=== PATIENT | male | born 1935 | race Caucasian/White ===

== ENCOUNTER 2023-04-11 19:05 | Inpatient (IN) | payer MEDICARE ==
[2023-04-11 20:51] LABS: Bilirubin Neg (Negative); Blood, Urine Negative (Negative); Clarity Clear (Clear); Glucose, Urine (Dipstick) Normal (Negative); Ketone, Urine Negative (Negative); Leukocyte Negative (Negative); Nitrite Negative (Negative); Protein, Urine (Dipstick) 15 mg/dl (Neg-Trace)
[2023-04-11 21:11] LABS: Bacteria/HPF None Seen HPF (None Seen); CAUTI Indications for Culture Pelvic or flank pain; RBC/HPF None Seen HPF (0-3); Squamous Epithelial None Seen HPF (0-3); Urine Culture Reflex No No; WBC/HPF 0-3 HPF (0-3)
[2023-04-11 22:20] LABS: ALT (SGPT) 11 U/L (8-55); AST (SGOT) 15 U/L (5-34); Albumin 3.4 g/dL (3.4-4.8); Alkaline Phosphatase 87 U/L (40-110); Anion Gap 10 mmol/L (10-20); BUN (Urea Nitrogen) 28 mg/dL (8.4-25.7); Bilirubin, Total 0.6 mg/dL (0.2-1.2); Calc. Creatinine Clearance 0 mL/min (70-130); Calcium 8.7 mg/dL (7.8-10.44); Carbon Dioxide 24 mmol/L (23-31); Chloride 110 mmol/L (98-107); Estimated GFR 66; Globulin 2.8 g/dL (2.4-3.5); Glucose 96 mg/dL (83-110); Magnesium 2.1 mg/dL (1.6-2.6); Potassium 3.7 mmol/L (3.5-5.1); Protein, Total 6.2 g/dL (5.8-8.1); Sodium 140 mmol/L (136-145)
[2023-04-11 22:26] LABS: #Eosinphils 0.2 10x3/uL (0.0-0.5); #Monocytes 0.6 10x3/uL (0.0-1.1); #Neutrophils 3.4 10x3/uL (1.5-8.4); %Basophils 0.5 % (0.0-2.0); %Eosinophils 3.5 % (0.0-6.0); %Lymphocytes 24.4 % (18.0-47.0); %Neutrophils 60.2 % (40.0-75.0); Hematocrit 37.2 % (38.8-50.0); Hemoglobin 12.1 g/dL (13.5-17.5); Mean Corpuscular HGB CONC 32.5 g/dL (32.0-36.0); Mean Corpuscular Hemoglobin 26.7 pg (27.0-33.0); Mean Corpuscular Volume 81.9 fl (81.2-95.1); Mean Platelet Volume 13.4 fl (7.4-10.4); Platelet Count 175 10x3/uL (150-450); RBC Distribution Width 16.4 % (11.5-14.5); Red Blood Cell (RBC) Count 4.54 10x6/uL (4.32-5.72); White Blood Cell (WBC) Count 5.7 10x3/uL (3.5-10.5)
[2023-04-11 22:27] LABS: Troponin I 0.044 ng/mL (< 0.028)
[2023-04-11] MEDS ORDERED: Ondansetron PF 4 MG/2 ML Vial IVP PRN (23:53)
[2023-04-11] MEDS ORDERED: Guaifenesin DM 100-10/5 ML UDCUP PO PRN (23:53)
[2023-04-11] MEDS ORDERED: Acetaminophen 325 MG TAB PO PRN (23:53)
[2023-04-11] MEDS ORDERED: Senokot S 8.6-50 MG TAB PO PRN (23:53)
[2023-04-11] MEDS ORDERED: Calcium Carbonate 500 MG ChewTAB PO PRN (23:53)
[2023-04-12] MEDS ORDERED: Furosemide 40 MG/4 ML VIAL SLOW IVP SCH (01:00)
[2023-04-12 01:27] VITALS: BMI 30.7
[2023-04-12] MEDS: HYDROcodone/Acetaminophen 5/325 mg Tablet PO PRN ×2 (03:19→17:13)
[2023-04-12] MEDS: Furosemide 40 MG/4 ML VIAL SLOW IVP SCH ×2 (05:45→17:13)
[2023-04-12 06:32] LABS: Anion Gap 13 mmol/L (10-20); BUN (Urea Nitrogen) 26 mg/dL (8.4-25.7); Calc. Creatinine Clearance 70 mL/min (70-130); Calcium 8.3 mg/dL (7.8-10.44); Carbon Dioxide 21 mmol/L (23-31); Chloride 111 mmol/L (98-107); Estimated GFR 74; Glucose 90 mg/dL (83-110); Potassium 3.4 mmol/L (3.5-5.1); Sodium 142 mmol/L (136-145)
[2023-04-12 08:52] LABS: Troponin I 0.047 ng/mL (< 0.028)
[2023-04-12] MEDS: Clopidogrel Bisulfate 75 MG TAB PO SCH (10:02)
[2023-04-12] MEDS: Amantadine HCl 100 mg Capsule PO SCH ×2 (10:02→21:33)
[2023-04-12] MEDS: Rivaroxaban 10 MG TAB PO SCH (10:02)
[2023-04-12] MEDS: Famotidine 20 MG TAB PO SCH ×2 (10:03→21:33)
[2023-04-12] MEDS: Sotalol HCl 80 MG TAB PO SCH ×2 (10:03→21:34)
[2023-04-12] MEDS: rOPINIRole HCl 2 MG TAB PO SCH (10:05)
[2023-04-12] MEDS ORDERED: Potassium Chloride 20 MEQ TAB PO SCH (11:00)
[2023-04-12 14:43] LABS: SARS-CoV-2 NAA Rapid Test Not Detected (NotDetected)
[2023-04-12] MEDS: Atorvastatin Calcium 40 MG TAB PO SCH (21:33)
[2023-04-12] MEDS: Doxazosin 2 MG TAB PO SCH (21:33)
[2023-04-12] MEDS: Donepezil HCl 5 MG TAB PO SCH (21:33)
[2023-04-13 04:02] LABS: #Eosinphils 0.2 10x3/uL (0.0-0.5); #Monocytes 0.7 10x3/uL (0.0-1.1); #Neutrophils 3.9 10x3/uL (1.5-8.4); %Basophils 0.5 % (0.0-2.0); %Eosinophils 3.5 % (0.0-6.0); %Monocytes 10.3 % (0.0-10.0); %Neutrophils 61.5 % (40.0-75.0); Hemoglobin 12.5 g/dL (13.5-17.5); Mean Corpuscular HGB CONC 32.9 g/dL (32.0-36.0); Mean Corpuscular Hemoglobin 26.8 pg (27.0-33.0); Mean Corpuscular Volume 81.4 fl (81.2-95.1); Mean Platelet Volume 12.8 fl (7.4-10.4); Platelet Count 164 10x3/uL (150-450); RBC Distribution Width 16.3 % (11.5-14.5); Red Blood Cell (RBC) Count 4.67 10x6/uL (4.32-5.72); White Blood Cell (WBC) Count 6.3 10x3/uL (3.5-10.5)
[2023-04-13 04:29] LABS: Anion Gap 12 mmol/L (10-20); BUN (Urea Nitrogen) 26 mg/dL (8.4-25.7); Calc. Creatinine Clearance 66 mL/min (70-130); Calcium 8.6 mg/dL (7.8-10.44); Carbon Dioxide 26 mmol/L (23-31); Cardiac Risk 3.3 (Less than 4.5); Chloride 106 mmol/L (98-107); Cholesterol 149 mg/dl (< 200 Desired); Estimated GFR 69; Glucose 84 mg/dL (83-110); HDL Cholesterol 45 mg/dL (>60 Neg Risk); LDL Cholesterol, Calculated 93 mg/dL; Magnesium 1.9 mg/dL (1.6-2.6); Potassium 3.3 mmol/L (3.5-5.1); Sodium 141 mmol/L (136-145); Triglycerides 55 mg/dL (Less than 150)
[2023-04-13 04:43] LABS: Troponin I 0.041 ng/mL (< 0.028)
[2023-04-13] MEDS: Furosemide 40 MG/4 ML VIAL SLOW IVP SCH (05:47)
[2023-04-13] MEDS: Rivaroxaban 10 MG TAB PO SCH (08:58)
[2023-04-13] MEDS: Famotidine 20 MG TAB PO SCH ×2 (08:58→21:00)
[2023-04-13] MEDS: Amantadine HCl 100 mg Capsule PO SCH ×2 (08:59→21:00)
[2023-04-13] MEDS: Sotalol HCl 80 MG TAB PO SCH (08:59)
[2023-04-13] MEDS: Clopidogrel Bisulfate 75 MG TAB PO SCH (09:00)
[2023-04-13] MEDS: HYDROcodone/Acetaminophen 5/325 mg Tablet PO PRN ×2 (09:01→17:33)
[2023-04-13] MEDS: rOPINIRole HCl 2 MG TAB PO SCH (09:01)
[2023-04-13] MEDS ORDERED: Potassium Chloride 20 MEQ TAB PO SCH (10:00)
[2023-04-13] MEDS ORDERED: Spironolactone 25 MG TAB PO SCH (10:00)
[2023-04-13] MEDS ORDERED: Magnesium 2 GM/50 ML(in water) 2 GM in Premix Bag 1 BAG IVPB SCH (10:30)
[2023-04-13 13:18] LABS: Hemoglobin A1c 5.4 % (4.0-6.0)
[2023-04-13] MEDS ORDERED: Digoxin 0.5 MG/2 ML AMP SLOW IVP SCH (15:00)
[2023-04-13] MEDS: Furosemide 20 MG/2 ML VIAL SLOW IVP SCH (15:04)
[2023-04-13] MEDS: Doxazosin 2 MG TAB PO SCH (21:00)
[2023-04-13] MEDS: Atorvastatin Calcium 40 MG TAB PO SCH (21:00)
[2023-04-13] MEDS: Metoprolol Tartrate 25 MG TAB PO SCH (21:00)
[2023-04-13] MEDS: Donepezil HCl 5 MG TAB PO SCH (21:00)
[2023-04-14 03:45] LABS: Anion Gap 10 mmol/L (10-20); BUN (Urea Nitrogen) 23 mg/dL (8.4-25.7); Calc. Creatinine Clearance 67 mL/min (70-130); Calcium 8.6 mg/dL (7.8-10.44); Carbon Dioxide 28 mmol/L (23-31); Chloride 104 mmol/L (98-107); Estimated GFR 77; Glucose 91 mg/dL (83-110); Magnesium 2.1 mg/dL (1.6-2.6); Potassium 3.4 mmol/L (3.5-5.1); Sodium 139 mmol/L (136-145)
[2023-04-14] MEDS: Furosemide 20 MG/2 ML VIAL SLOW IVP SCH ×2 (06:18→14:30)
[2023-04-14] MEDS: Metoprolol Tartrate 25 MG TAB PO SCH ×2 (10:57→21:22)
[2023-04-14] MEDS: Rivaroxaban 10 MG TAB PO SCH (10:58)
[2023-04-14] MEDS: Famotidine 20 MG TAB PO SCH ×2 (10:58→10:59)
[2023-04-14] MEDS: Amantadine HCl 100 mg Capsule PO SCH ×2 (11:00→21:21)
[2023-04-14] MEDS ORDERED: Potassium Chloride 20 MEQ TAB PO SCH (11:00)
[2023-04-14] MEDS: rOPINIRole HCl 2 MG TAB PO SCH (11:03)
[2023-04-14] MEDS: Digoxin 0.125 MG TAB PO SCH (11:19)
[2023-04-14] MEDS: Spironolactone 25 MG TAB PO SCH (11:19)
[2023-04-14] MEDS: Clopidogrel Bisulfate 75 MG TAB PO SCH (11:20)
[2023-04-14] MEDS: Atorvastatin Calcium 40 MG TAB PO SCH (21:21)
[2023-04-14] MEDS: Doxazosin 2 MG TAB PO SCH (21:22)
[2023-04-14] MEDS: Donepezil HCl 5 MG TAB PO SCH (21:22)
[2023-04-15] MEDS: Furosemide 20 MG/2 ML VIAL SLOW IVP SCH (05:49)
[2023-04-15] MEDS ORDERED: Potassium Chloride 20 MEQ TAB PO SCH ×2 (08:30→17:00)
[2023-04-15] MEDS: Metoprolol Tartrate 25 MG TAB PO SCH (09:07)
[2023-04-15] MEDS: Spironolactone 25 MG TAB PO SCH (09:07)
[2023-04-15] MEDS: Famotidine 20 MG TAB PO SCH (09:08)
[2023-04-15] MEDS: Rivaroxaban 10 MG TAB PO SCH (09:08)
[2023-04-15] MEDS: Amantadine HCl 100 mg Capsule PO SCH (09:08)
[2023-04-15] MEDS: Digoxin 0.125 MG TAB PO SCH (09:08)
[2023-04-15] MEDS: Clopidogrel Bisulfate 75 MG TAB PO SCH (09:08)
[2023-04-15] MEDS: rOPINIRole HCl 2 MG TAB PO SCH (09:08)
[2023-04-15 14:18] VITALS: BP 122/77; TEMP 98.2
== END 2023-04-15 17:00 | DRG 291 ==
LOC: CSHERS 19:05 → CSHTELE 04-12 00:46
PROVIDERS: ADMIT Student in an Organized Health Care Education/Training Program; ATTEND Family Medicine
DX: I11.0 Hypertensive heart disease with heart failure (principal); I50.43 Acute on chronic combined systolic (congestive) and diastolic (congestive) heart failure; J96.01 Acute respiratory failure with hypoxia; I48.19 Other persistent atrial fibrillation; I35.0 Nonrheumatic aortic (valve) stenosis; F03.90 Unspecified dementia, unspecified severity, without behavioral disturbance, psychotic disturbance, mood disturbance, and anxiety; Z66 Do not resuscitate; I25.10 Atherosclerotic heart disease of native coronary artery without angina pectoris; G20 Parkinson's disease; R53.81 Other malaise; R77.8 Other specified abnormalities of plasma proteins; E87.6 Hypokalemia; I48.0 Paroxysmal atrial fibrillation; E78.2 Mixed hyperlipidemia; I65.23 Occlusion and stenosis of bilateral carotid arteries; Z20.822 Contact with and (suspected) exposure to COVID-19; R29.810 Facial weakness; Z88.0 Allergy status to penicillin; Z95.5 Presence of coronary angioplasty implant and graft; Z88.8 Allergy status to other drugs, medicaments and biological substances; Z79.899 Other long term (current) drug therapy; Z79.82 Long term (current) use of aspirin; Z98.890 Other specified postprocedural states
CPT/HCPCS: 36415; 70450; 70551; 71045; 74230; 80048; 80053; 80061; 81001; 83036; 83735; 83880; 84443; 84484; 85025; 93005; 93306; 94760; J1160; J1940; J2405; J3475; U0002

== ENCOUNTER 2023-05-17 03:01 | Emergency (ER) | payer MEDICARE | END 2023-05-17 04:15 | disposition home or self-care (01) | LOC: CSHERS 03:01 | DX: K40.90 Unilateral inguinal hernia, without obstruction or gangrene, not specified as recurrent (principal); I25.10 Atherosclerotic heart disease of native coronary artery without angina pectoris; I11.0 Hypertensive heart disease with heart failure; I50.9 Heart failure, unspecified; I48.91 Unspecified atrial fibrillation; Z79.899 Other long term (current) drug therapy | CPT/HCPCS: 99283 ==